=== PATIENT | male | born 1965 | race Caucasian/White ===

== ENCOUNTER 2018-11-22 05:29 | Day surgery (SDC) | payer OTHER ==
[2018-11-22] VITALS (15 sets, daily range): BP systolic 108–131; BP diastolic 58–71; PULSE 60–81; RESP 11–22; Ht 172.7 cm; Wt 72.7 kg
[~2018-11-22] VITALS: Ht 172.7 cm; Wt 72.7 kg
[2018-11-22] MEDS ORDERED: SOD CHLORIDE 0.9% 1,000 ML IV ONE (05:30)
[2018-11-22] MEDS ORDERED: CEFAZOLIN 2 GM/50 ML (PMX) 50 ML IVPB ONE (05:30)
[2018-11-22] MEDS ORDERED: LIDOCAINE 2% (SDV) 5 ML INJ ONE (07:00)
[2018-11-22] MEDS ORDERED: SEVOFLURANE 15 MIN ONE (07:00)
[2018-11-22] MEDS ORDERED: ROCURONIUM 50 MG INJ ONE ×2 (07:00→07:36)
--- NOTE | 2018-11-22 07:16 | PREAC ---
Date/Time of Note Date/Time of Note DATE: 11/22/18 TIME: 07:15 Anesthesia Eval and Record Evaluation Time Pre-Procedure Interview DATE: 11/22/18 TIME: 07:15 Age 53 Sex male NPO: 8 hrs Preoperative diagnosis left inguinal hernia Planned procedure left inguinal hernia repair Past Medical History Past Medical History: None Surgery & Anesthesia Issues No known issue Meds Anticoagulation: No Beta Miri within 24 hr: No Reason Beta Miri not given: Pt. not on B-Miri No Active Prescriptions or Reported Meds Current Medications Sodium Chloride 1,000 ml @ 75 mls/hr [id number] ONCE IV ; Start 11/22/18 at 05:30; Stop 11/22/18 at 18:49 Meds reviewed: Yes Allergies Coded Allergies: No Known Drug Allergies (Unverified Allergy, Unknown, 11/22/18) Allergies Reviewed: Yes Labs/Studies Labs Reviewed: Reviewed by anesthesiologist test: N/A Studies: ECG, CXR Pre-procedure Exam Last vitals Vital Signs Date Temp Pulse Resp B/P (MAP) Pulse Ox O2 O2 Flow FiO2 Time Delivery Rate 11/22/18 98.8 66 18 119/68 07:10 (85) Airway: Adequate mouth opening, Adequate thyromental dist Mallampati: Mallampati II Teeth: Normal Lung: Normal Heart: Normal ASA Physical Status ASA physical status: 1 Emergency: None Planned Anesthetic General/MAC: LMA Planned Pain Management Parenteral pain med Pre-operative Attestations Prior to commencing anesthesia and surgery, the patient was re-evaluated, there was verification of: *The patient's identity *The results of appropriate recent lab work and preoperative vital signs *The above evaluation not changing prior to induction *Anesthetic plan, risk benefits, alternative and complications discussed with patient/family; questions answered; patient/family understands, accepts and wishes to proceed. LIONEL PINK Nov 22, 2018 07:16
[2018-11-22] MEDS ORDERED: PROPOFOL 20 ML ONE (07:34)
[2018-11-22] MEDS ORDERED: BUPIVACAINE 0.25% (MPF) 30 ML INJ ONE (07:47)
[2018-11-22] MEDS ORDERED: CEFAZOLIN 1 GM INJ ONE (08:17)
[2018-11-22] MEDS ORDERED: POLYMYXIN/BACITRACIN 1L IRRIG IRR ONE ×2 (08:40→09:05)
[2018-11-22] MEDS ORDERED: SUGAMMADEX SODIUM 200 MG/2 ML VIAL IV ONE (08:52)
[2018-11-22] MEDS ORDERED: HYDROCODONE/APAP (5/325) TAB PO ONE (09:00)
--- NOTE | 2018-11-22 09:04 | OPR ---
Date/Time of Note Date/Time of Note DATE: 11/22/18 TIME: 09:00 Operative Report Procedure Date: Nov 22, 2018 Preoperative Diagnosis incarcerated left inguinal hernia Postoperative Diagnosis same Operation/Procedure Performed 1. open left incarcerated inguinal hernia repair with medium ultraproplug hernia system mesh 2. injection of subcutaneous local anesthesia Surgeon see signature line Practical Nursing Faculty none Anesthesia Type: general Estimated Blood Loss: 0 - 10 ml's Transfusion none Specimen none Grafts/Implants none Complications none Pt Condition Post Procedure: stable Indications This is a 53-year-old male with an incarcerated left inguinal hernia. He requires surgical repair. Risks alternatives benefits and percent were discussed with the patient. Patient expressed understanding and consents to the operation. Procedure Description Patient is taken to the OR and prepped and draped in usual sterile fashion. Surgical time was performed. IV antibiotics were given. Left inguinal oblique incision was made with a 10 blade. Dissection with cautery carried onto the axillary fascia. The externally fascia was opened with a 15 blade. This incision extended medial inferiorly and lateral sparely with Metzenbaum scissors. Cord structures identified and encircled with a Madeline drain and retracted out of harm's way. Incarcerated indirect hernia is identified. Lysis of adhesions performed and the hernia is then manually reduced. The defect was then closed with a medium ultra pro plug. The plug was secured in place with a running 0 Prolene from the pubic tubercle along the shelving is unlimited. Superiorly the plug was secured to the internal bleed with interrupted 3-0 Vicryl. Onlay mesh was secured in a similar fashion with a running oh point from the pubic tubercle along the shelving is unlimited. Straps are created and reapproximated around the cord structures with interrupted 0 Prolene to recreate the inguinal ring. Onlay mesh is secured to enter oblique with interrupted 0 Vicryl. Externally fascia is closed with running 3-0 Vicryl. Jennifer's fascia is closed with interrupted 3-0 Vicryl. Skin was closed using absorbable inzorb skin stapler. Therapeutic contains local anesthesia injected at the incision site. Dry dressings were applied. Nydia PIMENTEL Nov 22, 2018 09:04
[2018-11-22] MEDS ORDERED: POLYMYXIN/BACITRACIN 1L IRRIG ONE (09:07)
--- NOTE | 2018-11-22 09:11 | PAC ---
Date/Time of Note Date/Time of Note DATE: 11/22/18 TIME: 09:11 Post-Anesthesia Notes Post-Anesthesia Note Last documented vital signs Vital Signs Date Temp Pulse Resp B/P (MAP) Pulse Ox O2 O2 Flow FiO2 Time Delivery Rate 11/22/18 98.8 66 18 119/68 0911 (85) Activity: WNL Respiratory function: WNL Cardiovascular function: WNL Mental status: Baseline Pain reasonably controlled: Yes Hydration appropriate: Yes Nausea/Vomiting absent: Yes LIONEL PINK Nov 22, 2018 09:11
[2018-11-22] MEDS ORDERED: OXYCODONE/ACETAMINOPHEN (5/325) TAB PO PRN ×2 (09:30)
[2018-11-22] MEDS ORDERED: hydrALAzine 20 MG INJ IV PRN (09:30)
[2018-11-22] MEDS ORDERED: DIPHENHYDRAMINE 50 MG INJ IV PRN (09:30)
[2018-11-22] MEDS ORDERED: MIDAZOLAM 1 MG/ML 2 ML INJ IV PRN (09:30)
[2018-11-22] MEDS ORDERED: MEPERIDINE 25 MG INJ IV PRN (09:30)
[2018-11-22] MEDS ORDERED: ALBUTEROL 0.083% (NEB) 2.5 MG/3 ML AMP HHN PRN (09:30)
[2018-11-22] MEDS ORDERED: FENTAnyl 50 MCG/ML VIAL IV PRN ×3 (09:30)
[2018-11-22] MEDS ORDERED: LABETALOL HCL 20MG INJ IV PRN (09:30)
[2018-11-22] MEDS ORDERED: ONDANSETRON 4 MG INJ IV PRN (09:30)
[2018-11-22] MEDS ORDERED: HYDROmorphONE 1 MG/5 ML IV SYRINGE IV PRN ×3 (09:30)
[2018-11-22] MEDS ORDERED: EPHEDrine SULFATE 50 MG/5 ML SYG IV PRN (09:30)
[2018-11-22] MEDS ORDERED: ONDANSETRON 4 MG INJ IV STA (11:15)
[2018-11-22] MEDS ORDERED: METOCLOPRAMIDE 10 MG INJ IV ONE (13:30)
== END 2018-11-22 14:30 | disposition home or self-care (01) ==
LOC: SDS 05:29
PROVIDERS: ATTEND Surgery
DX: K40.30 Unilateral inguinal hernia, with obstruction, without gangrene, not specified as recurrent (principal)
CPT/HCPCS: 49507; C1781; J0690; J1170; J2405; J2765; J3010